=== PATIENT | male | born 1960 | race Caucasian/White ===

== ENCOUNTER → 2017-02-17 11:49 | Outpatient (CLI) | payer OTHER ==
[2016-06-30 19:52] VITALS: BMI 29.7
[~2017-02-17 11:49] MED LIST: OXYCONTIN10 MG PO; VALIUM10 MG PO; VALIUM5 MG PO
== END | disposition home or self-care (01) ==
LOC: D.LABREF 11:49
DX: R19.00 Intra-abdominal and pelvic swelling, mass and lump, unspecified site (principal)